=== PATIENT | male | born 1975 | race Caucasian/White ===

== ENCOUNTER 2021-12-26 13:47 | Emergency (ER) | payer SELFPAY ==
[2021-12-26 13:58] VITALS: BP 154/98
[2021-12-27] MEDS ORDERED: cephALEXin 500 MG CAP PO ONE (00:01)
[2021-12-27] MEDS ORDERED: KETOROLAC 10 MG TAB PO ONE (00:02)
[2021-12-27] MEDS ORDERED: oxyCODONE /ACETAMINOPHEN 5-325MG TAB PO ONE (00:02)
[2021-12-27] MEDS ORDERED: SULFAMETHOXAZOLE/TRIMETHOPRIM 800/160MG DS TAB PO ONE (00:02)
--- NOTE | 2021-12-27 00:47 | XRay Report ---
XR abdomen 1V ap INDICATION / CLINICAL INFORMATION: abdominal abscess. COMPARISON: None available. TECHNIQUE: One view supine AP abdomen. FINDINGS: TUBES / LINES: None. BOWEL GAS PATTERN: Nonobstructive bowel gas pattern. Nonenlarged small bowel loops contain gas with a dditional nonenlarged large bowel do not reflects sigmoid colon within the central abdomen. No mass e ffect to suggest large fluid collection. FREE AIR / EXTRALUMINAL GAS: None seen. ADDITIONAL FINDINGS: No significant additional findings. IMPRESSION: 1. The pattern of bowel gas appears nonobstructive.. Signer Name: Orlin Hernandez II, MD Signed: 12/27/2021 12:43 AM Workstation Name: [id number]
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
== END 2021-12-27 01:52 | disposition home or self-care (01) ==
LOC: ED 13:47
DX: L02.211 Cutaneous abscess of abdominal wall (principal)
CPT/HCPCS: 74018; 99283